=== PATIENT | female | born 1945 | race Two or more races ===

== ENCOUNTER 2017-05-13 23:58 | Emergency (ER) | payer MEDICARE, MEDICAID ==
[~2017-05-13] VITALS: Ht 152.4 cm; Wt 94.3 kg
[2017-05-14] MEDS ORDERED: ALBUTEROL/IPRATROPIUM 2.5MG/0.5MG, 3 ML NPPB ONE (00:30)
[2017-05-14] MEDS ORDERED: SODIUM CHLORIDE FLUSH 10ML SYR IVF ONE (00:30)
[2017-05-14] MEDS ORDERED: methylPREDNISolone SOD SUCC 125 MG/2 ML IVP ONE (00:30)
[2017-05-14 00:32] VITALS: BP 128/86
[2017-05-14 00:49] LABS: HEMOGLOBIN 14.6 g/dL (11.7-16.4); WHITE BLOOD COUNT 9.2 x10^3/uL (3.4-10)
[2017-05-14] MEDS ORDERED: methylPREDNISolone SOD SUCC 125 MG/2 ML ONE (01:26)
[2017-05-14 01:29] LABS: IS PT STATUS REG ER OR PRE ER? YES
[2017-05-14 02:04] LABS: BLOOD UREA NITROGEN 30 mg/dL (7-18)
[2017-05-14 02:07] LABS: ASPARTATE AMINO TRANSFERASE 36 U/L (15-37)
== END 2017-05-14 02:48 | disposition home or self-care (01) ==
LOC: ED 05-14 01:18
DX: J20.8 Acute bronchitis due to other specified organisms (principal); I10 Essential (primary) hypertension; E11.9 Type 2 diabetes mellitus without complications; E78.5 Hyperlipidemia, unspecified
CPT/HCPCS: 36415; 71010; 80053; 84484; 85025; 93005; 94640; 96374; 99285; J2930; J7620

== ENCOUNTER → 2017-07-14 | Outpatient (CLI) | payer MEDICARE, MEDICAID | END | disposition home or self-care (01) | LOC: CVU 08:36 | PROVIDERS: ATTEND Surgery | DX: I89.0 Lymphedema, not elsewhere classified (principal); L81.8 Other specified disorders of pigmentation; E66.9 Obesity, unspecified | CPT/HCPCS: 93970 ==

== ENCOUNTER 2017-12-18 21:09 | Emergency (ER) | payer MEDICARE, MEDICAID ==
[~2017-12-18] VITALS: Ht 152.4 cm; Wt 93.5 kg
[2017-12-18 21:14] VITALS: BP 179/96
[2017-12-18 22:46] LABS: BASOPHILS # (AUTO) 0.04 x10^3/uL (0-0.1); BASOPHILS % (AUTO) 0 % (0-1); EOSINOPHILS # (AUTO) 0.19 x10^3/uL (0-0.4); EOSINOPHILS % (AUTO) 2 % (1-7); LYMPHOCYTES # (AUTO) 2.89 x10^3/uL (1-3.4); LYMPHOCYTES % (AUTO) 27 % (22-44); MD NO; MEAN CORPUSCULAR HEMOGLOBIN 28.4 pg (27.0-34.8); MEAN CORPUSCULAR HGB CONC 32.9 g/dL (32.4-35.8); MEAN CORPUSCULAR VOLUME 86.1 fL (80-100); MEAN PLATELET VOLUME 7.2 fL (7.4-10.4); MONOCYTES # (AUTO) 0.64 x10^3/uL (0.2-0.8); MONOCYTES % (AUTO) 6 % (2-9); NEUTROPHILS # (AUTO) 7.03 x10^3/uL (1.8-6.8); NEUTROPHILS % (AUTO) 65 % (42-75); PLATELET COUNT 446 x10^3/uL (130-400); RED BLOOD COUNT 4.09 x10^6/uL (3.82-5.3); RED CELL DISTRIBUTION WIDTH 16.2 % (9.6-15.2)
[2017-12-18 22:58] LABS: ALANINE AMINOTRANSFERASE 26 U/L (12-78); ALBUMIN 2.8 g/dL (3.4-5.0); ANION GAP 9 mmol/L (5-15); CALCIUM 8.2 mg/dL (8.5-10.1); CHLORIDE 95 mmol/L (98-107); CREATININE 0.86 mg/dL (0.55-1.02)
[2017-12-18 23:00] LABS: ALKALINE PHOSPHATASE 107 U/L (45-117); BILIRUBIN,TOTAL 0.8 mg/dL (0.2-1.0); TOTAL PROTEIN 7.3 g/dL (6.4-8.2)
[2017-12-18 23:08] LABS: INTERNATIONAL NORMALIZED RATIO 1.04 (0.93-1.1); PROTHROMBIN TIME 10.7 Seconds (9.6-11.5)
[2017-12-18] MEDS ORDERED: BACITRACIN ZINC OINT 500U/GM, 0.9 GM ONE (23:56)
== END 2017-12-19 00:36 | disposition home or self-care (01) ==
LOC: ED 23:32 → EDIP 23:54 → UNDOADMIN 23:54 → ED 12-19 00:36
DX: S42.212A Unspecified displaced fracture of surgical neck of left humerus, initial encounter for closed fracture (principal); S02.2XXA Fracture of nasal bones, initial encounter for closed fracture; E78.5 Hyperlipidemia, unspecified; E66.9 Obesity, unspecified; E11.65 Type 2 diabetes mellitus with hyperglycemia; I10 Essential (primary) hypertension; Z79.4 Long term (current) use of insulin; Z79.82 Long term (current) use of aspirin; W01.0XXA Fall on same level from slipping, tripping and stumbling without subsequent striking against object, initial encounter; Y93.89 Activity, other specified; Y92.009 Unspecified place in unspecified non-institutional (private) residence as the place of occurrence of the external cause; Y99.8 Other external cause status
CPT/HCPCS: 29240; 36415; 70450; 70486; 71046; 72125; 80053; 85025; 85610; 93005; 99285

== ENCOUNTER → 2018-02-09 | Outpatient (CLI) | payer MEDICARE, MEDICAID ==
[~2018-02-09] MED LIST: EMPA25TA PO; FURO20TA3 PO; INSU100C5 SQ-INSULIN; INSU100V13 SC; LOSA100T6 PO; METF1000 PO; POTA10CA PO; ROSU20TA PO
== END | disposition home or self-care (01) ==
LOC: STAR 11:14
PROVIDERS: ATTEND Orthopaedic Surgery
DX: Z01.818 Encounter for other preprocedural examination (principal); S42.292A Other displaced fracture of upper end of left humerus, initial encounter for closed fracture; X58.XXXA Exposure to other specified factors, initial encounter; Y93.89 Activity, other specified; Y92.89 Other specified places as the place of occurrence of the external cause; Y99.8 Other external cause status
CPT/HCPCS: 93005

== ENCOUNTER 2019-03-12 10:40 | Emergency (ER) | payer MEDICARE, MEDICAID ==
[~2019-03-12] VITALS: Ht 142.2 cm; Wt 94.3 kg
[~2019-03-12 10:40] MED LIST changes: +LOSA100T14 PO; -LOSA100T6 PO; -ROSU20TA PO; +ROSU20TA2 PO
--- NOTE | 2019-03-12 11:07 | NUR ---
PT TO ED FOR LEFT LOWER BACK PAIN RAD DOWN LEFT LEG X10 DAYS. PAIN WORSE WITH MOVEMENT. PT CONNECTED TO MONITORES. HTN, ALL OTHER VSS ON RA. EDMD PRESENT FOR ASSESSMENT AND AWARE OF HTN. AWAITING ORDERS.
[2019-03-12] MEDS ORDERED: HYDROcodone/APAP 5/325 TABLET ONE (11:17)
[2019-03-12] MEDS ORDERED: HYDROcodone/APAP 5/325 TABLET PO ONE (11:30)
[2019-03-12 11:44] LABS: BASOPHILS # (AUTO) 0.01 x10^3/uL (0-0.1); BASOPHILS % (AUTO) 0 % (0-1); EOSINOPHILS # (AUTO) 0.22 x10^3/uL (0-0.4); EOSINOPHILS % (AUTO) 2 % (1-7); LYMPHOCYTES % (AUTO) 27 % (22-44); MD NO; MEAN CORPUSCULAR HGB CONC 31.3 g/dL (32.4-35.8); MEAN CORPUSCULAR VOLUME 82.9 fL (80-100); MEAN PLATELET VOLUME 7.6 fL (7.4-10.4); MONOCYTES # (AUTO) 0.55 x10^3/uL (0.2-0.8); MONOCYTES % (AUTO) 5 % (2-9); NEUTROPHILS # (AUTO) 6.91 x10^3/uL (1.8-6.8); NEUTROPHILS % (AUTO) 66 % (42-75); PLATELET COUNT 369 x10^3/uL (130-400); RED BLOOD COUNT 4.41 x10^6/uL (3.82-5.3); RED CELL DISTRIBUTION WIDTH 16.2 % (9.6-15.2)
[2019-03-12 11:56] LABS: ALANINE AMINOTRANSFERASE 34 U/L (12-78); ALBUMIN 3.1 g/dL (3.4-5.0); ANION GAP 7 mmol/L (5-15); CALCIUM 8.3 mg/dL (8.5-10.1); CHLORIDE 104 mmol/L (98-107)
[2019-03-12 11:59] LABS: MICROSCOPIC NOT IND
--- NOTE | 2019-03-12 12:00 | NUR ---
pt resting in room with family at bs. htn, all other vss on ra. us at bs at this time. awaiting results.
[2019-03-12 12:01] LABS: ALKALINE PHOSPHATASE 182 U/L (45-117); BILIRUBIN,TOTAL 0.3 mg/dL (0.2-1.0); TOTAL PROTEIN 7.3 g/dL (6.4-8.2); TROPONIN I < 0.015 ng/mL (0.000-0.045)
[2019-03-12 12:01] LABS: CULTURE INDICATED? NO
--- NOTE | 2019-03-12 12:27 | NUR ---
all results back at this time. chart up for recheck.
--- NOTE | 2019-03-12 12:52 | NUR ---
new orders for ct received at this time.
--- NOTE | 2019-03-12 13:00 | NUR ---
pt resting in room with family at bs. vss on ra. ekg being completed. awaiting ct.
--- NOTE | 2019-03-12 13:09 | NUR ---
pt to ct at this time.
--- NOTE | 2019-03-12 14:05 | NUR ---
pt resting in room with family at bs. vss on ra. awaiting ct results.
[2019-03-12 14:54] VITALS: BP 185/72
--- NOTE | 2019-03-12 14:55 | NUR ---
vss. edmd present to update on results and poc. plan to dc.
== END 2019-03-12 15:15 | disposition home or self-care (01) ==
LOC: ED 11:39
DX: S32.049A Unspecified fracture of fourth lumbar vertebra, initial encounter for closed fracture (principal); E11.65 Type 2 diabetes mellitus with hyperglycemia; E78.5 Hyperlipidemia, unspecified; M51.16 Intervertebral disc disorders with radiculopathy, lumbar region; M79.662 Pain in left lower leg; X58.XXXA Exposure to other specified factors, initial encounter; Y93.89 Activity, other specified; Y92.89 Other specified places as the place of occurrence of the external cause; Y99.8 Other external cause status
CPT/HCPCS: 36415; 71045; 72131; 80053; 81003; 83880; 84484; 85025; 93005; 99284

== ENCOUNTER 2019-03-23 12:51 | Inpatient (IN) | payer MEDICARE, MEDICAID ==
[~2019-03-23] VITALS: Ht 144.8 cm; Wt 97.3 kg
--- NOTE | 2019-03-23 13:30 | NUR ---
PER ROSALINE "SHE FELL TODAY AND HER RIGHT ANKLE IS REALLY SWOLLEN. SHE TOOK A VICODIN AT 0900. SHE FELL ABOUT AN HOUR AGO. SHE WAS USING THE RESTROOM AND GOT CAUGHT UP ON THE CARPET. THAT CAUSED HER TO FALL ON THE BATH TUB." FAMILY BEDSIDE.
--- NOTE | 2019-03-23 13:30 | NUR ---
PT TO ROOM FROM LOBBY AT THIS TIME.
--- NOTE | 2019-03-23 13:48 | NUR ---
PT TO IMAGING.
[2019-03-23] MEDS ORDERED: HYDROcodone/APAP 10/325 MG TABLET ONE (13:51)
[2019-03-23] MEDS ORDERED: HYDROcodone/APAP 10/325 MG TABLET PO ONE (14:00)
--- NOTE | 2019-03-23 14:04 | NUR ---
PT BACK FROM IMAGING. PT RESTING ON GURNEY. MEDICATION ADMINISTERED PER EMAR. FAMILY BEDSIDE. PT PLACED ON CONT PULSE OX,NIBP.
--- NOTE | 2019-03-23 14:29 | NUR ---
PT STATES "THE MEDICATIONS HELPED A LITTLE. I'M FEELING SLEEPY." NO ACUTE DISTRESS NOTED. FAMILY BEDSIDE
--- NOTE | 2019-03-23 15:31 | NUR ---
PT RESTING ON GURNEY. NO ACUTE DISTRESS NOTED. PER GRANDDAUGHTER, "SHE ALREADY WENT TO CAT SCAN." NO OTHER NEEDS REQUESTED AT THIS TIME. FAMILY BEDSIDE.
[2019-03-23] MEDS ORDERED: ONDANSETRON ODT 8 MG ONE (16:05)
--- NOTE | 2019-03-23 16:06 | NUR ---
PT HAD EPISODE OF EMESIS. ZOFRAN ORDERED AND ADMINISTERED
[2019-03-23] MEDS ORDERED: ONDANSETRON ODT 8 MG PO ONE (16:30)
--- NOTE | 2019-03-23 18:52 | NUR ---
PT FAILED ROADTEST. PT UNABLE TO GET OFF OF GURNEY TO STAND WITH WALKER. EDMD AWARE.
--- NOTE | 2019-03-23 18:52 | NUR ---
BEDSIDE REPORT TO BETHANY KUMAR.
--- NOTE | 2019-03-23 18:53 | NUR ---
REPORT RECEIVED FROM RODRICK SIMS.
--- NOTE | 2019-03-23 18:57 | NUR ---
LATE ENTRY FOR 1800 SPLINT COMPLETED BY EDTA. NO ACUTE DISTRESS NOTED. FAMILY BEDSIDE. NO NEEDS REQUESTED AT THIS TIME.
--- NOTE | 2019-03-23 18:57 | NUR ---
LATE ENTRY FOR 1700 PT RESTING ON [facility]. FAMILY BEDSIDE. NO NEEDS REQUESTED AT THIS TIME.
--- NOTE | 2019-03-23 19:36 | NUR ---
REPORT GIVEN TO CRUZ SIMS. ALL QUESTIONS ANSWERED.
[2019-03-23 19:47] LABS: BASOPHILS # (AUTO) 0.03 x10^3/uL (0-0.1); BASOPHILS % (AUTO) 0 % (0-1); EOSINOPHILS # (AUTO) 0.07 x10^3/uL (0-0.4); EOSINOPHILS % (AUTO) 1 % (1-7); LYMPHOCYTES # (AUTO) 2.24 x10^3/uL (1-3.4); LYMPHOCYTES % (AUTO) 18 % (22-44); MD NO; MEAN CORPUSCULAR HEMOGLOBIN 26.8 pg (27.0-34.8); MEAN CORPUSCULAR HGB CONC 32.1 g/dL (32.4-35.8); MEAN CORPUSCULAR VOLUME 83.4 fL (80-100); MEAN PLATELET VOLUME 7.8 fL (7.4-10.4); MONOCYTES # (AUTO) 0.53 x10^3/uL (0.2-0.8); MONOCYTES % (AUTO) 4 % (2-9); NEUTROPHILS # (AUTO) 9.88 x10^3/uL (1.8-6.8); NEUTROPHILS % (AUTO) 78 % (42-75); PLATELET COUNT 385 x10^3/uL (130-400); RED BLOOD COUNT 4.21 x10^6/uL (3.82-5.3); RED CELL DISTRIBUTION WIDTH 16.3 % (9.6-15.2)
[2019-03-23 19:53] LABS: INTERNATIONAL NORMALIZED RATIO 1.01 (0.93-1.1); PROTHROMBIN TIME 10.6 Seconds (9.6-11.5)
[2019-03-23 19:54] LABS: ALANINE AMINOTRANSFERASE 37 U/L (12-78); ANION GAP 6 mmol/L (5-15); CALCIUM 8.4 mg/dL (8.5-10.1); CHLORIDE 102 mmol/L (98-107)
[2019-03-23 19:57] LABS: ALKALINE PHOSPHATASE 142 U/L (45-117); BILIRUBIN,TOTAL 0.5 mg/dL (0.2-1.0); CREATININE 0.63 mg/dL (0.55-1.02); TOTAL PROTEIN 7.2 g/dL (6.4-8.2)
[2019-03-23 20:45] VITALS: BP 147/87
[2019-03-23] MEDS: MORPHINE SULFATE 4 MG/ML, 1ML IVPush PRN (21:48)
[2019-03-23] MEDS ORDERED: IBUP-647 PO (22:14)
[2019-03-23] MEDS ORDERED: ACETAMINOPHEN 325 MG TABLET PO PRN (23:00)
[2019-03-23] MEDS ORDERED: BISACODYL 10 MG SUPP PR PRN (23:00)
[2019-03-23] MEDS ORDERED: ONDANSETRON 2MG/ML, 2ML IVPush PRN (23:00)
[2019-03-23] MEDS ORDERED: hydrALAzine 20 MG/ML, 1ML IVPush PRN (23:00)
[2019-03-23 23:22] LABS: HEMOGLOBIN A1C 9.4 % (4.2-6.3)
[2019-03-23] MEDS: SODIUM CHLORIDE FLUSH 10ML SYR IVF SCH (23:42)
[2019-03-23] MEDS: INSULIN LISPRO 100 UNITS/ML, PEN SQ-INSULIN SCH (23:47)
[2019-03-24 02:17] VITALS: BP 140/70
[2019-03-24 03:14] LABS: MICROSCOPIC NOT IND
[2019-03-24 03:27] LABS: CULTURE INDICATED? NO
[2019-03-24 05:34] LABS: BASOPHILS # (AUTO) 0.01 x10^3/uL (0-0.1); BASOPHILS % (AUTO) 0 % (0-1); EOSINOPHILS # (AUTO) 0.16 x10^3/uL (0-0.4); EOSINOPHILS % (AUTO) 2 % (1-7); LYMPHOCYTES # (AUTO) 2.12 x10^3/uL (1-3.4); LYMPHOCYTES % (AUTO) 20 % (22-44); MD NO; MEAN CORPUSCULAR HEMOGLOBIN 26.7 pg (27.0-34.8); MEAN CORPUSCULAR HGB CONC 31.7 g/dL (32.4-35.8); MEAN CORPUSCULAR VOLUME 84.2 fL (80-100); MEAN PLATELET VOLUME 8.2 fL (7.4-10.4); MONOCYTES # (AUTO) 0.48 x10^3/uL (0.2-0.8); MONOCYTES % (AUTO) 5 % (2-9); NEUTROPHILS # (AUTO) 7.75 x10^3/uL (1.8-6.8); NEUTROPHILS % (AUTO) 74 % (42-75); PLATELET COUNT 347 x10^3/uL (130-400); RED BLOOD COUNT 3.91 x10^6/uL (3.82-5.3); RED CELL DISTRIBUTION WIDTH 15.9 % (9.6-15.2)
[2019-03-24 05:46] LABS: CHLORIDE 101 mmol/L (98-107)
[2019-03-24 05:52] LABS: ALANINE AMINOTRANSFERASE 30 U/L (12-78); ALBUMIN 2.7 g/dL (3.4-5.0); ALKALINE PHOSPHATASE 123 U/L (45-117); ANION GAP 6 mmol/L (5-15); BILIRUBIN,TOTAL 0.4 mg/dL (0.2-1.0); CALCIUM 8.5 mg/dL (8.5-10.1); CREATININE 0.54 mg/dL (0.55-1.02); TOTAL PROTEIN 6.3 g/dL (6.4-8.2)
[2019-03-24] MEDS: INSULIN LISPRO 100 UNITS/ML, PEN SQ-INSULIN SCH ×3 (06:17→18:00)
[2019-03-24 07:10] VITALS: BP 130/77
[2019-03-24] MEDS: MORPHINE SULFATE 4 MG/ML, 1ML IVPush PRN ×3 (08:03→23:47)
[2019-03-24] MEDS: SODIUM CHLORIDE FLUSH 10ML SYR IVF SCH ×2 (08:04→21:00)
[2019-03-24] MEDS ORDERED: PROPOFOL 10 MG/ML, 20ML ONE (08:22)
[2019-03-24] MEDS ORDERED: CEFAZOLIN 1,000 MG ONE (08:22)
[2019-03-24] MEDS ORDERED: SUCCINYLCHOLINE 20 MG/ML, 10ML ONE (08:22)
[2019-03-24 08:31] LABS: HEMOGLOBIN A1C 9.7 % (4.2-6.3)
[2019-03-24] MEDS: FUROSEMIDE 40 MG TABLET PO SCH (08:55)
[2019-03-24] MEDS: DOCUSATE 100 MG CAPSULE PO SCH (08:55)
[2019-03-24] MEDS: metFORMIN 500 MG TABLET PO SCH ×2 (08:55→21:00)
[2019-03-24] MEDS: LOSARTAN 50MG TABLET PO SCH (08:55)
[2019-03-24] MEDS: POTASSIUM CHLORIDE 10% 20 MEQ/15 ML UDC PO SCH (08:56)
[2019-03-24 12:38] VITALS: BP 116/75
[2019-03-24] MEDS ORDERED: BUPIVACAINE/EPI 0.5% 1:200K ONE (16:35)
[2019-03-24] MEDS ORDERED: FENTANYL PF 100 MCG/2ML ONE ×2 (17:42→18:36)
[2019-03-24] MEDS ORDERED: MIDAZOLAM 1 MG/ML, 2ML ONE (17:42)
[2019-03-24] MEDS ORDERED: HYDROmorphone 2 MG/ML, 1ML ONE (18:36)
[2019-03-24] MEDS ORDERED: OXYcodone 5 MG/5 ML ORAL.SOL UDC ONE (18:36)
[2019-03-24] MEDS: HYDROmorphone 2 MG/ML, 1ML IVPush PRN ×6 (18:58→19:36)
[2019-03-24] MEDS ORDERED: OXYcodone 5 MG/5 ML ORAL.SOL UDC PO PRN (19:00)
[2019-03-24] MEDS ORDERED: FENTANYL PF 100 MCG/2ML IV PRN (19:00)
[2019-03-24] MEDS ORDERED: MEPERIDINE/PF 25MG/0.5ML IVPush PRN (19:00)
[2019-03-24] MEDS ORDERED: ONDANSETRON 2MG/ML, 2ML IV PRN (19:00)
[2019-03-24] MEDS ORDERED: hydrALAzine 20 MG/ML, 1ML IV PRN (19:00)
[2019-03-24] MEDS ORDERED: hydrALAzine 20 MG/ML, 1ML ONE (19:23)
[2019-03-24 20:10] VITALS: BP 145/84
[2019-03-24] MEDS: ATORVASTATIN 80 MG TABLET PO SCH (21:00)
[2019-03-24] MEDS ORDERED: LACTATED RINGERS 1,000 ML IV SCH (23:00)
[2019-03-25] MEDS: INSULIN LISPRO 100 UNITS/ML, PEN SQ-INSULIN SCH ×5 (00:09→21:26)
[2019-03-25 00:19] VITALS: BP 126/83
[2019-03-25] MEDS: MORPHINE SULFATE 4 MG/ML, 1ML IVPush PRN ×3 (00:30→08:35)
[2019-03-25] MEDS: CEFAZOLIN PMX 1GM/50ML 50 ML IV SCH ×3 (02:06→17:49)
[2019-03-25 04:02] VITALS: BP 122/79
[2019-03-25 05:36] LABS: BASOPHILS # (AUTO) 0.03 x10^3/uL (0-0.1); BASOPHILS % (AUTO) 0 % (0-1); EOSINOPHILS % (AUTO) 1 % (1-7); LYMPHOCYTES # (AUTO) 1.41 x10^3/uL (1-3.4); LYMPHOCYTES % (AUTO) 11 % (22-44); MD NO; MEAN CORPUSCULAR HEMOGLOBIN 26.1 pg (27.0-34.8); MEAN CORPUSCULAR HGB CONC 31.4 g/dL (32.4-35.8); MEAN PLATELET VOLUME 7.8 fL (7.4-10.4); MONOCYTES # (AUTO) 0.67 x10^3/uL (0.2-0.8); MONOCYTES % (AUTO) 5 % (2-9); NEUTROPHILS # (AUTO) 10.45 x10^3/uL (1.8-6.8); NEUTROPHILS % (AUTO) 83 % (42-75); PLATELET COUNT 328 x10^3/uL (130-400); RED BLOOD COUNT 3.93 x10^6/uL (3.82-5.3); RED CELL DISTRIBUTION WIDTH 16.1 % (9.6-15.2)
[2019-03-25 05:37] LABS: ANION GAP 6 mmol/L (5-15); CALCIUM 8.4 mg/dL (8.5-10.1); CHLORIDE 100 mmol/L (98-107)
[2019-03-25 05:38] LABS: CREATININE 0.63 mg/dL (0.55-1.02)
[2019-03-25] MEDS: SODIUM CHLORIDE FLUSH 10ML SYR IVF SCH ×2 (08:31→21:26)
[2019-03-25 08:33] VITALS: BP 128/71
[2019-03-25] MEDS: LOSARTAN 50MG TABLET PO SCH (08:35)
[2019-03-25] MEDS: FUROSEMIDE 40 MG TABLET PO SCH (08:35)
[2019-03-25] MEDS: metFORMIN 500 MG TABLET PO SCH ×2 (08:35→21:23)
[2019-03-25] MEDS: DOCUSATE 100 MG CAPSULE PO SCH (08:35)
[2019-03-25] MEDS: POTASSIUM CHLORIDE 10% 20 MEQ/15 ML UDC PO SCH (08:35)
[2019-03-25] MEDS: OXYcodone/APAP 10/325MG TABLET PO PRN ×2 (10:49→19:52)
[2019-03-25 12:36] VITALS: BP 112/80
[2019-03-25] MEDS ORDERED: ENOXAPARIN 40 MG/0.4 ML SQ SCH (15:00)
[2019-03-25 18:25] VITALS: BP 119/84
[2019-03-25] MEDS: ATORVASTATIN 80 MG TABLET PO SCH (21:23)
[2019-03-26 00:25] VITALS: BP 113/75
[2019-03-26] MEDS: OXYcodone/APAP 10/325MG TABLET PO PRN ×2 (04:02→13:24)
[2019-03-26 06:57] VITALS: BP 105/67
[2019-03-26] MEDS ORDERED: INSULIN DETEMIR 40 UNIT SC SCH (07:30)
[2019-03-26 07:50] VITALS: BP 118/77
[2019-03-26] MEDS: LOSARTAN 50MG TABLET PO SCH (07:52)
[2019-03-26] MEDS: DOCUSATE 100 MG CAPSULE PO SCH (07:52)
[2019-03-26] MEDS: FUROSEMIDE 40 MG TABLET PO SCH (07:53)
[2019-03-26] MEDS: POTASSIUM CHLORIDE 10% 20 MEQ/15 ML UDC PO SCH (07:53)
[2019-03-26] MEDS: metFORMIN 500 MG TABLET PO SCH (07:53)
[2019-03-26] MEDS: INSULIN LISPRO 100 UNITS/ML, PEN SQ-INSULIN SCH ×2 (07:54→11:37)
[2019-03-26] MEDS: SODIUM CHLORIDE FLUSH 10ML SYR IVF SCH (07:56)
[2019-03-26] MEDS: MORPHINE SULFATE 4 MG/ML, 1ML IVPush PRN (08:05)
[2019-03-26] MEDS ORDERED: OXYC-432 PO (09:18)
[2019-03-26 13:20] VITALS: BP 109/76
[2019-03-26 15:00] VITALS: BP 122/81
[2019-03-26] MEDS ORDERED: INSULIN GLARGINE, 100 UNITS/ML VIAL SQ-INSULIN SCH (21:00)
== END 2019-03-26 15:50 | DRG 492 ==
LOC: ED 15:04 → EDIP 19:01 → 4NOR 19:50
PROVIDERS: ADMIT Internal Medicine; ATTEND Internal Medicine
PROC: 2W3QX1Z Immobilization of Right Lower Leg using Splint (ICD-10-PCS; principal; 2019-03-23)
PROC: 0QSJ04Z Reposition Right Fibula with Internal Fixation Device, Open Approach (ICD-10-PCS; 2019-03-24)
PROC: 0QSG04Z Reposition Right Tibia with Internal Fixation Device, Open Approach (ICD-10-PCS; 2019-03-24)
PROC: 0SSF04Z Reposition Right Ankle Joint with Internal Fixation Device, Open Approach (ICD-10-PCS; 2019-03-24)
DX: S82.851A Displaced trimalleolar fracture of right lower leg, initial encounter for closed fracture (principal); R65.11 Systemic inflammatory response syndrome (SIRS) of non-infectious origin with acute organ dysfunction; S22.41XA Multiple fractures of ribs, right side, initial encounter for closed fracture; Z68.42 Body mass index [BMI] 45.0-49.9, adult; E11.65 Type 2 diabetes mellitus with hyperglycemia; D72.828 Other elevated white blood cell count; E78.5 Hyperlipidemia, unspecified; E66.9 Obesity, unspecified; I11.9 Hypertensive heart disease without heart failure; Z96.612 Presence of left artificial shoulder joint; M17.11 Unilateral primary osteoarthritis, right knee; M85.80 Other specified disorders of bone density and structure, unspecified site; W01.0XXA Fall on same level from slipping, tripping and stumbling without subsequent striking against object, initial encounter; Y93.89 Activity, other specified; Y92.89 Other specified places as the place of occurrence of the external cause; Z79.4 Long term (current) use of insulin; Y99.8 Other external cause status
CPT/HCPCS: 29515; 36415; 71045; 76000; 80048; 80053; 81003; 82962; 83036; 85025; 85610; 85730; 93005; 99285; C1713; G0378; J0690; J1170; J1650; J2250; J2405; J2704; J3010; Q0162; J0330; J0360; J1815; J2270; J7120

== ENCOUNTER 2020-07-23 16:09 | Inpatient (IN) | payer MEDICARE, MEDICAID ==
[~2020-07-23] VITALS: Ht 144.8 cm; Wt 92.6 kg
[~2020-07-23 16:09] MED LIST changes: +IBUP-647 PO; +OXYC1TAB18 PO
[2020-07-23] MEDS ORDERED: ACETAMINOPHEN 500 MG TABLET PO ONE (17:00)
[2020-07-23] MEDS ORDERED: ACETAMINOPHEN 500 MG TABLET ONE (17:13)
[2020-07-23 17:23] LABS: BASOPHILS % (AUTO) 0 % (0-1); EOSINOPHILS % (AUTO) 0 % (1-7); LYMPHOCYTES % (AUTO) 11 % (22-44); MEAN CORPUSCULAR HEMOGLOBIN 24.6 pg (27.0-34.8); MEAN CORPUSCULAR HGB CONC 31.6 g/dL (32.4-35.8); MEAN PLATELET VOLUME 7.5 fL (7.4-10.4); MONOCYTES % (AUTO) 3 % (2-9); NEUTROPHILS % (AUTO) 85 % (42-75); PLATELET COUNT 409 x10^3/uL (130-400); RED BLOOD COUNT 4.96 x10^6/uL (3.82-5.3); RED CELL DISTRIBUTION WIDTH 16.5 % (9.6-15.2)
[2020-07-23 17:30] LABS: MD SCAN
[2020-07-23 17:33] LABS: ALANINE AMINOTRANSFERASE 15 U/L (12-78); ALBUMIN 2.1 g/dL (3.4-5.0); ANION GAP 6 mmol/L (5-15); CALCIUM 8.1 mg/dL (8.5-10.1); CHLORIDE 98 mmol/L (98-107); CREATININE 0.65 mg/dL (0.55-1.02)
[2020-07-23 17:40] LABS: ALKALINE PHOSPHATASE 111 U/L (45-117); BILIRUBIN,TOTAL 0.3 mg/dL (0.2-1.0); TOTAL PROTEIN 7.3 g/dL (6.4-8.2)
[2020-07-23 17:53] LABS: D-DIMER (DIC) 1.34 ug/mlFEU (0.00-0.52); PROTIME 11.4 Seconds (9.6-11.5)
[2020-07-23] MEDS ORDERED: CEFTRIAXONE PMX 1GM/50ML 50 ML IV ONE (18:00)
[2020-07-23] MEDS ORDERED: DOXYCYCLINE 100 MG in DEXTROSE 5% 250 ML IV SCH ×2 (18:00→19:30)
[2020-07-23] MEDS ORDERED: DEXAMETHASONE 4 MG/ML, 1ML IVPush ONE (18:00)
[2020-07-23] MEDS ORDERED: CEFTRIAXONE PMX 1GM/50ML 50 ML ONE (18:04)
[2020-07-23] MEDS ORDERED: DEXAMETHASONE 4 MG/ML, 1ML ONE (18:04)
[2020-07-23] MEDS ORDERED: LABETALOL 5MG/ML, 20ML IVPush PRN (19:00)
[2020-07-23] MEDS ORDERED: ACETAMINOPHEN 325 MG TABLET PO PRN (19:00)
[2020-07-23] MEDS ORDERED: GUAIFENESIN/DM 200-20MG, 10ML UDC PO PRN (19:00)
[2020-07-23] MEDS ORDERED: ONDANSETRON 2MG/ML, 2ML IVPush PRN (19:00)
[2020-07-23] MEDS ORDERED: DOCUSATE 100 MG CAPSULE PO PRN (19:00)
[2020-07-23] MEDS: HEPARIN 5,000 UNITS/ML, 1ML SQ SCH (19:00)
[2020-07-23] MEDS ORDERED: DOXYCYCLINE 100 MG in DEXTROSE 5% 250 ML IV ONE (19:10)
[2020-07-23] MEDS ORDERED: HEPARIN 5,000 UNITS/ML, 1ML ONE (19:33)
--- NOTE | 2020-07-23 21:03 | NUR ---
PT PLACED ON HOSPITAL BED.
--- NOTE | 2020-07-23 21:28 | NUR ---
REPORT FROM BETHANY DOSS. PT AWAKE AND VISITING WITH FAMILY.
[2020-07-23] MEDS ORDERED: ATORVASTATIN 20 MG TABLET ONE (22:20)
[2020-07-23] MEDS: INSULIN LISPRO 100 UNITS/ML, PEN SQ-INSULIN SCH (22:30)
[2020-07-23] MEDS ORDERED: ATORVASTATIN 80 MG TABLET ONE (22:34)
[2020-07-23] MEDS: ATORVASTATIN 80 MG TABLET PO SCH (22:35)
[2020-07-24] MEDS ORDERED: DEXAMETHASONE 4 MG/ML, 1ML ONE ×5 (00:04→23:20)
[2020-07-24] MEDS: DEXAMETHASONE 4 MG/ML, 1ML IVPush SCH ×4 (00:07→18:00)
--- NOTE | 2020-07-24 00:57 | NUR ---
Report received from BETHANY Salinas. This RN to assume care.
[2020-07-24] MEDS: HEPARIN 5,000 UNITS/ML, 1ML SQ SCH (03:00)
[2020-07-24] MEDS ORDERED: HEPARIN 5,000 UNITS/ML, 1ML ONE (03:24)
--- NOTE | 2020-07-24 04:45 | NUR ---
[employer] used. Patient assisted to bedside commode. Patient desat to 84% on exertion. After rest, patient SPO2 increased to 90%.
--- NOTE | 2020-07-24 05:09 | NUR ---
Patient's O2 level maintaining at 87-91% on 8lpm oxymask. Called Dr. Gomez MD hospitalist. Advised to switch patient to NRB at 8lpm and monitor. If patient continues to desat, will call resp to evaluate.
[2020-07-24] MEDS: DOXYCYCLINE 100 MG in DEXTROSE 5% 250 ML IV SCH ×2 (06:00→18:00)
--- NOTE | 2020-07-24 06:13 | NUR ---
Patient resting with no complaints. Patient maintaining sats at 91% on oxymask. Monitoring for changes.
[2020-07-24 06:29] LABS: BASOPHILS % (AUTO) 0 % (0-1); EOSINOPHILS % (AUTO) 0 % (1-7); LYMPHOCYTES % (AUTO) 11 % (22-44); MEAN CORPUSCULAR HEMOGLOBIN 24.5 pg (27.0-34.8); MEAN CORPUSCULAR HGB CONC 31.2 g/dL (32.4-35.8); MEAN PLATELET VOLUME 7.7 fL (7.4-10.4); MONOCYTES % (AUTO) 2 % (2-9); NEUTROPHILS % (AUTO) 87 % (42-75); PLATELET COUNT 424 x10^3/uL (130-400); RED BLOOD COUNT 4.88 x10^6/uL (3.82-5.3); RED CELL DISTRIBUTION WIDTH 16.2 % (9.6-15.2)
--- NOTE | 2020-07-24 06:37 | NUR ---
Meal tray ordered.
[2020-07-24 06:41] LABS: CALCIUM 8.7 mg/dL (8.5-10.1); CHLORIDE 101 mmol/L (98-107)
[2020-07-24 06:44] LABS: ANION GAP 6 mmol/L (5-15)
[2020-07-24 06:47] LABS: MD NO
--- NOTE | 2020-07-24 06:50 | NUR ---
REPORT RECEIVED FROM BETHANY BRAR
--- NOTE | 2020-07-24 06:55 | NUR ---
Note alex in EDM - 07/24/20 at 0721 by [facility] RESPIRATORY BEDSIDE EVALUATING. PT ON 15 LPM, O2 SATS AT 92, RATE AT 30. DECISION WAS MADE BY RESPIRATORY NOT TO PLACE ON OPTIFLOW AND INSTEAD CONTINUE TO MONITOR PT AT CURRENT OXYGEN SETTINGS. WILL REEVALUATE SHORTLY.
--- NOTE | 2020-07-24 07:21 | NUR ---
RESPIRATORY BEDSIDE EVALUATING. PT ON 15 LPM, O2 SATS AT 92, RATE AT 30. DECISION WAS MADE BY RESPIRATORY NOT TO PLACE ON OPTIFLOW AND INSTEAD CONTINUE TO MONITOR PT AT CURRENT OXYGEN SETTINGS. WILL REEVALUATE SHORTLY.
--- NOTE | 2020-07-24 07:35 | NUR ---
cardiac rhythm strip printed and placed on chart
--- NOTE | 2020-07-24 08:27 | NUR ---
PLACED ON OXY MASK AND PT OXYGEN SATURATION NOTED TO BE 86%. PT SPEAKING FULL SENTENCES, NO DISTRESS. NONREBREATHER PLACED BACK ON PT. WILL CONTINUE TO MONITOR.
[2020-07-24] MEDS ORDERED: GUAIFENESIN ER 600 MG TABLET ONE (08:54)
--- NOTE | 2020-07-24 09:08 | NUR ---
PT RESTING IN BED WITH EYES OPEN. VS OBTAINED. BG OBTAINED: 250.
[2020-07-24] MEDS: LOSARTAN 100 MG TAB PO SCH (09:11)
[2020-07-24] MEDS: POTASSIUM CHLORIDE 10 MEQ TABLET.ER PO SCH ×2 (09:12→09:48)
[2020-07-24] MEDS: INSULIN LISPRO 100 UNITS/ML, PEN SQ-INSULIN SCH ×5 (09:17→22:58)
[2020-07-24] MEDS ORDERED: FUROSEMIDE 20 MG TABLET ONE (09:20)
[2020-07-24] MEDS: FUROSEMIDE 20 MG TABLET PO SCH (09:22)
--- NOTE | 2020-07-24 09:33 | NUR ---
PROVIDED BREAKFAST TRAY. PT ON NASAL CANNULA WITH OXYEN SATURATION 88 TO 85 PERCENT. ENCOURAGED PT TO INHALE DEEP THROUGH NOSE. CLOSELY MONITORING PT AND TO PLACE BACK ON NONREBREATHER AFTER BREAKFAST COMPLETED. PT ASKING QUESTIONS ABOUT MEDS, SPEAKING IN FULL SENTENCES.
--- NOTE | 2020-07-24 09:37 | NUR ---
PER PHARMACIST, OK TO CUT POTASSIUM ER TAB FOR PT.
--- NOTE | 2020-07-24 09:39 | NUR ---
ORAL HYGIENE KIT PROVIDED TO PATIENT
[2020-07-24] MEDS: INSULIN GLARGINE 100 UNITS/ML, PEN SQ-INSULIN SCH (09:48)
--- NOTE | 2020-07-24 09:49 | NUR ---
AFTER PT DONE EATING BRUSHED HER TEETH AND APPLIED LIP BALM. NONREBREATHER THEN BACK IN PLACE WITH OXYGE SATURATION 92 PERCENT. PT NOTED TO HAVE OCCASIONAL COUGH.
--- NOTE | 2020-07-24 10:57 | NUR ---
PT UP TO COMMODE. PT SHORT OF BREATH WITH EXERTION AND TACHYPNEA NOTED. PT BACK TO BED. WORK OF BREATHING IMPROVED AFTER RESTING IN HOSPITAL BED.
--- NOTE | 2020-07-24 10:59 | NUR ---
PT PROVIDED TEACHING ON USE OF INCENTIVE SPIROMETER WITH ABILITY TO DEMONSTRATE BACK. PT ENCOURAGED TO USE HOURLY.
[2020-07-24] MEDS ORDERED: ENOXAPARIN 100 MG/ML ONE ×2 (11:10→20:25)
[2020-07-24] MEDS: ENOXAPARIN 100 MG/ML SQ SCH ×2 (11:17→21:20)
--- NOTE | 2020-07-24 11:36 | NUR ---
HOSPITALIST AT BEDSIDE. DISCUSSING WOB AND REQUIREMENT FOR HIGH FLOW OXYGEN. ABG ORDERED AND CHECKED AVAILABILITY OF REMDISIVIR WITH PHARMACY FOR HOSPITALIST
[2020-07-24] MEDS ORDERED: INSU100V35 SC (12:05)
[2020-07-24] MEDS ORDERED: EMPAGLIFLOZIN 10 MG (12:05)
--- NOTE | 2020-07-24 12:18 | NUR ---
PT SITTING IN, USING THE INCENTIVE SPIOMETER
--- NOTE | 2020-07-24 12:42 | NUR ---
cardiac rhythm strip printed and placed on chart
--- NOTE | 2020-07-24 12:52 | NUR ---
PT LUNCH DELIVERED. PT NEEDS MET AT THIS TIME.
--- NOTE | 2020-07-24 13:30 | NUR ---
Report given to BETHANY Call
--- NOTE | 2020-07-24 13:32 | NUR ---
REPORT REC'D FROM BETHANY OWEN
--- NOTE | 2020-07-24 13:42 | NUR ---
RESPIRATORY CONTACTED ABOUT PATIENT'S CONTINUED WORK OF BREATHING. PT ON NRB 15 LPM, SPO2 88-92%, AND RATES OF 28-32. GOMEZ ADVISED SHE WOULD COME ASSESS THE PT.
[2020-07-24] MEDS ORDERED: REMDESIVIR 200 MG in SODIUM CHLORIDE 0.9% 250 ML IVPB ONE (14:00)
--- NOTE | 2020-07-24 16:00 | NUR ---
RAPID COVID AND FLU COLLECTED AND TAKEN TO LAB.
[2020-07-24 16:24] LABS: RAPID INFLUENZA A Negative (Negative); RAPID INFLUENZA B Negative (Negative)
--- NOTE | 2020-07-24 17:49 | NUR ---
CARDIAC RHYTHM STRIP PRINTED AND PLACED ON CHART
--- NOTE | 2020-07-24 18:05 | NUR ---
IV INFILTRATED, TASK RN ATTEMPT TO START NEW IV. 2 ATTEMPTS UNSUCCESSFUL.
[2020-07-24] MEDS ORDERED: CEFTRIAXONE PMX 1GM/50ML 50 ML ONE (19:23)
[2020-07-24] MEDS: CEFTRIAXONE PMX 1GM/50ML 50 ML IV SCH (19:32)
[2020-07-24 19:36] VITALS: BP_SYST 127; BP_SYST 178; BP_DIAS 70; BP_DIAS 96
[2020-07-24] MEDS ORDERED: ATORVASTATIN 80 MG TABLET ONE (21:15)
[2020-07-24] MEDS: ATORVASTATIN 80 MG TABLET PO SCH (21:20)
[2020-07-25 00:13] VITALS: BP 165/81
[2020-07-25] MEDS: DEXAMETHASONE 4 MG/ML, 1ML IVPush SCH ×4 (00:18→17:33)
[2020-07-25 04:35] VITALS: BP 142/77
[2020-07-25 04:52] LABS: BASOPHILS % (AUTO) 0 % (0-1); EOSINOPHILS % (AUTO) 0 % (1-7); LYMPHOCYTES % (AUTO) 11 % (22-44); MEAN CORPUSCULAR HEMOGLOBIN 24.5 pg (27.0-34.8); MEAN CORPUSCULAR HGB CONC 31.2 g/dL (32.4-35.8); MEAN PLATELET VOLUME 7.5 fL (7.4-10.4); MONOCYTES % (AUTO) 6 % (2-9); NEUTROPHILS % (AUTO) 83 % (42-75); PLATELET COUNT 473 x10^3/uL (130-400); RED BLOOD COUNT 4.54 x10^6/uL (3.82-5.3); RED CELL DISTRIBUTION WIDTH 16.2 % (9.6-15.2)
[2020-07-25 04:58] LABS: INTERNATIONAL NORMALIZED RATIO 1.11 (0.93-1.1); PROTHROMBIN TIME 11.8 Seconds (9.6-11.5)
[2020-07-25 05:00] LABS: MD NO
[2020-07-25 05:02] LABS: CALCIUM 8.6 mg/dL (8.5-10.1); CHLORIDE 102 mmol/L (98-107)
[2020-07-25 05:08] LABS: ALANINE AMINOTRANSFERASE 14 U/L (12-78); ALKALINE PHOSPHATASE 103 U/L (45-117); ANION GAP 7 mmol/L (5-15); BILIRUBIN,TOTAL 0.4 mg/dL (0.2-1.0); CREATININE 0.55 mg/dL (0.55-1.02); TOTAL PROTEIN 6.8 g/dL (6.4-8.2)
[2020-07-25] MEDS ORDERED: DEXAMETHASONE 4 MG/ML, 1ML ONE (05:32)
[2020-07-25] MEDS: DOXYCYCLINE 100 MG in DEXTROSE 5% 250 ML IV SCH ×2 (05:37→17:59)
[2020-07-25 07:36] VITALS: BP 110/86
[2020-07-25] MEDS: INSULIN GLARGINE 100 UNITS/ML, PEN SQ-INSULIN SCH (08:40)
[2020-07-25] MEDS: FUROSEMIDE 20 MG TABLET PO SCH (08:42)
[2020-07-25] MEDS: ENOXAPARIN 100 MG/ML SQ SCH ×2 (08:42→20:34)
[2020-07-25] MEDS: POTASSIUM CHLORIDE 10 MEQ TABLET.ER PO SCH (08:42)
[2020-07-25] MEDS: LOSARTAN 100 MG TAB PO SCH (08:43)
[2020-07-25] MEDS ORDERED: CHOLECALCIFEROL 5,000u TAB ONE (09:51)
[2020-07-25] MEDS ORDERED: ASCORBIC ACID 500 MG TABLET ONE (09:52)
[2020-07-25] MEDS ORDERED: ZINC SULFATE 220 MG CAPSULE ONE (09:52)
[2020-07-25] MEDS ORDERED: INSULIN LISPRO 100 UNITS/ML, PEN SQ-INSULIN ONE (10:00)
[2020-07-25] MEDS: ZINC SULFATE 220 MG CAPSULE PO SCH (10:04)
[2020-07-25] MEDS: CHOLECALCIFEROL 5,000u TAB PO SCH (10:04)
[2020-07-25] MEDS: ASCORBIC ACID 500 MG TABLET PO SCH ×3 (10:04→20:34)
[2020-07-25] MEDS: INSULIN LISPRO 100 UNITS/ML, PEN SQ-INSULIN SCH ×3 (12:14→21:23)
[2020-07-25 15:04] VITALS: BP 143/85
[2020-07-25] MEDS: REMDESIVIR 100 MG in SODIUM CHLORIDE 0.9% 250 ML IVPB SCH (15:17)
[2020-07-25] MEDS: CEFTRIAXONE PMX 1GM/50ML 50 ML IV SCH (20:25)
[2020-07-25] MEDS: ATORVASTATIN 80 MG TABLET PO SCH (20:34)
[2020-07-25 20:46] VITALS: BP 160/96
[2020-07-26] MEDS: DEXAMETHASONE 4 MG/ML, 1ML IVPush SCH ×4 (00:05→20:14)
[2020-07-26 00:30] VITALS: BP 151/92
[2020-07-26 05:24] LABS: ALANINE AMINOTRANSFERASE 22 U/L (12-78); ALBUMIN 1.9 g/dL (3.4-5.0); ANION GAP 7 mmol/L (5-15); CALCIUM 8.4 mg/dL (8.5-10.1); CHLORIDE 103 mmol/L (98-107); CREATININE 0.43 mg/dL (0.55-1.02)
[2020-07-26 05:27] LABS: ALKALINE PHOSPHATASE 98 U/L (45-117); BILIRUBIN,TOTAL 0.3 mg/dL (0.2-1.0); TOTAL PROTEIN 6.3 g/dL (6.4-8.2)
[2020-07-26] MEDS: DOXYCYCLINE 100 MG in DEXTROSE 5% 250 ML IV SCH (06:07)
[2020-07-26] MEDS: INSULIN LISPRO 100 UNITS/ML, PEN SQ-INSULIN SCH ×4 (07:55→21:09)
[2020-07-26] MEDS: INSULIN GLARGINE 100 UNITS/ML, PEN SQ-INSULIN SCH (07:55)
[2020-07-26] MEDS: ENOXAPARIN 100 MG/ML SQ SCH ×2 (07:55→20:14)
[2020-07-26] MEDS: FUROSEMIDE 20 MG TABLET PO SCH (07:56)
[2020-07-26] MEDS: CHOLECALCIFEROL 5,000u TAB PO SCH (07:56)
[2020-07-26] MEDS: ASCORBIC ACID 500 MG TABLET PO SCH ×3 (07:56→20:14)
[2020-07-26] MEDS: POTASSIUM CHLORIDE 10 MEQ TABLET.ER PO SCH (07:57)
[2020-07-26] MEDS: ZINC SULFATE 220 MG CAPSULE PO SCH (07:57)
[2020-07-26] MEDS: LOSARTAN 100 MG TAB PO SCH (07:57)
[2020-07-26 08:01] VITALS: BP 143/86
[2020-07-26 14:15] VITALS: BP 137/83
[2020-07-26] MEDS: REMDESIVIR 100 MG in SODIUM CHLORIDE 0.9% 250 ML IVPB SCH (14:15)
[2020-07-26 20:10] VITALS: BP 150/86
[2020-07-26] MEDS: ATORVASTATIN 80 MG TABLET PO SCH (20:13)
[2020-07-26] MEDS: CEFTRIAXONE PMX 1GM/50ML 50 ML IV SCH (20:14)
[2020-07-26] MEDS: DOXYCYCLINE 100MG TABLET PO SCH (21:09)
[2020-07-27 02:29] VITALS: BP 156/92
[2020-07-27 05:29] LABS: ALANINE AMINOTRANSFERASE 27 U/L (12-78); ANION GAP 3 mmol/L (5-15); CALCIUM 8.4 mg/dL (8.5-10.1); CHLORIDE 104 mmol/L (98-107)
[2020-07-27 05:31] LABS: ALKALINE PHOSPHATASE 109 U/L (45-117); BILIRUBIN,TOTAL 0.7 mg/dL (0.2-1.0); TOTAL PROTEIN 6.3 g/dL (6.4-8.2)
[2020-07-27] MEDS: INSULIN LISPRO 100 UNITS/ML, PEN SQ-INSULIN SCH ×4 (08:20→21:01)
[2020-07-27] MEDS: ZINC SULFATE 220 MG CAPSULE PO SCH (08:21)
[2020-07-27] MEDS: INSULIN GLARGINE 100 UNITS/ML, PEN SQ-INSULIN SCH (08:21)
[2020-07-27] MEDS: CHOLECALCIFEROL 5,000u TAB PO SCH (08:22)
[2020-07-27] MEDS: ENOXAPARIN 100 MG/ML SQ SCH ×2 (08:22→20:45)
[2020-07-27] MEDS: FUROSEMIDE 20 MG TABLET PO SCH (08:22)
[2020-07-27] MEDS: POTASSIUM CHLORIDE 10 MEQ TABLET.ER PO SCH (08:22)
[2020-07-27] MEDS: DOXYCYCLINE 100MG TABLET PO SCH ×2 (08:22→20:44)
[2020-07-27] MEDS: ASCORBIC ACID 500 MG TABLET PO SCH ×3 (08:22→20:45)
[2020-07-27] MEDS: DEXAMETHASONE 4 MG/ML, 1ML IVPush SCH ×2 (08:22→20:45)
[2020-07-27] MEDS: LOSARTAN 100 MG TAB PO SCH (08:23)
[2020-07-27 08:33] VITALS: BP 177/110
[2020-07-27] MEDS: REMDESIVIR 100 MG in SODIUM CHLORIDE 0.9% 250 ML IVPB SCH (14:01)
[2020-07-27 14:46] VITALS: BP 134/76
[2020-07-27 19:00] VITALS: BP 153/75
[2020-07-27] MEDS: ATORVASTATIN 80 MG TABLET PO SCH (20:44)
[2020-07-27] MEDS: CEFTRIAXONE PMX 1GM/50ML 50 ML IV SCH (20:44)
[2020-07-28 00:27] VITALS: BP 157/70
[2020-07-28 04:50] LABS: BASOPHILS % (AUTO) 1 % (0-1); EOSINOPHILS % (AUTO) 0 % (1-7); LYMPHOCYTES % (AUTO) 11 % (22-44); MEAN CORPUSCULAR HEMOGLOBIN 24.9 pg (27.0-34.8); MEAN CORPUSCULAR HGB CONC 31.7 g/dL (32.4-35.8); MEAN PLATELET VOLUME 7.7 fL (7.4-10.4); MONOCYTES % (AUTO) 6 % (2-9); NEUTROPHILS % (AUTO) 83 % (42-75); PLATELET COUNT 436 x10^3/uL (130-400); RED BLOOD COUNT 4.47 x10^6/uL (3.82-5.3); RED CELL DISTRIBUTION WIDTH 16.3 % (9.6-15.2)
[2020-07-28 04:52] LABS: ALANINE AMINOTRANSFERASE 30 U/L (12-78); ANION GAP 6 mmol/L (5-15); CALCIUM 8.1 mg/dL (8.5-10.1); CHLORIDE 106 mmol/L (98-107)
[2020-07-28 04:59] LABS: ALKALINE PHOSPHATASE 118 U/L (45-117); BILIRUBIN,TOTAL 0.2 mg/dL (0.2-1.0); MD NO; TOTAL PROTEIN 6.1 g/dL (6.4-8.2)
[2020-07-28 08:53] VITALS: BP 181/78
[2020-07-28] MEDS: INSULIN GLARGINE 100 UNITS/ML, PEN SQ-INSULIN SCH (08:57)
[2020-07-28] MEDS: INSULIN LISPRO 100 UNITS/ML, PEN SQ-INSULIN SCH ×4 (08:58→20:50)
[2020-07-28] MEDS: DEXAMETHASONE 4 MG/ML, 1ML IVPush SCH ×2 (08:58→20:46)
[2020-07-28] MEDS: CHOLECALCIFEROL 5,000u TAB PO SCH (09:01)
[2020-07-28] MEDS: POTASSIUM CHLORIDE 10 MEQ TABLET.ER PO SCH (09:01)
[2020-07-28] MEDS: DOXYCYCLINE 100MG TABLET PO SCH ×2 (09:01→20:47)
[2020-07-28] MEDS: ASCORBIC ACID 500 MG TABLET PO SCH ×3 (09:01→20:46)
[2020-07-28] MEDS: FUROSEMIDE 20 MG TABLET PO SCH (09:01)
[2020-07-28] MEDS: ZINC SULFATE 220 MG CAPSULE PO SCH (09:02)
[2020-07-28] MEDS: LOSARTAN 100 MG TAB PO SCH (09:06)
[2020-07-28] MEDS: ENOXAPARIN 100 MG/ML SQ SCH ×2 (10:00→20:46)
[2020-07-28] MEDS: CARVEDILOL 6.25 MG TABLET PO SCH ×2 (11:57→20:47)
[2020-07-28 12:00] VITALS: BP 168/94
[2020-07-28] MEDS: REMDESIVIR 100 MG in SODIUM CHLORIDE 0.9% 250 ML IVPB SCH (14:46)
[2020-07-28 14:52] VITALS: BP 130/81
[2020-07-28] MEDS ORDERED: FUROSEMIDE 20 MG/2 ML IV SCH (17:00)
[2020-07-28 18:20] VITALS: BP 124/83
[2020-07-28 20:10] VITALS: BP 124/76
[2020-07-28] MEDS: CEFTRIAXONE PMX 1GM/50ML 50 ML IV SCH (20:45)
[2020-07-28] MEDS: ATORVASTATIN 80 MG TABLET PO SCH (20:47)
[2020-07-29 00:35] VITALS: BP 139/83
[2020-07-29 05:46] VITALS: BP 151/87
[2020-07-29] MEDS: CARVEDILOL 6.25 MG TABLET PO SCH ×2 (05:48→17:00)
[2020-07-29] MEDS ORDERED: FUROSEMIDE 20 MG/2 ML IV SCH (07:30)
[2020-07-29 08:00] VITALS: BP 147/88
[2020-07-29] MEDS: LOSARTAN 100 MG TAB PO SCH (09:00)
[2020-07-29] MEDS: ZINC SULFATE 220 MG CAPSULE PO SCH (09:17)
[2020-07-29] MEDS: POTASSIUM CHLORIDE 10 MEQ TABLET.ER PO SCH (09:17)
[2020-07-29] MEDS: CHOLECALCIFEROL 5,000u TAB PO SCH (09:17)
[2020-07-29] MEDS: ASCORBIC ACID 500 MG TABLET PO SCH ×3 (09:17→20:39)
[2020-07-29] MEDS: INSULIN LISPRO 100 UNITS/ML, PEN SQ-INSULIN SCH ×4 (09:18→20:33)
[2020-07-29] MEDS: INSULIN GLARGINE 100 UNITS/ML, PEN SQ-INSULIN SCH (09:19)
[2020-07-29] MEDS: ENOXAPARIN 40 MG/0.4 ML SQ SCH (09:19)
[2020-07-29 14:00] VITALS: BP 130/83
[2020-07-29] MEDS: ATORVASTATIN 80 MG TABLET PO SCH (20:39)
[2020-07-29 21:09] VITALS: BP 119/77
[2020-07-30 00:18] VITALS: BP 116/77
[2020-07-30] MEDS: CARVEDILOL 6.25 MG TABLET PO SCH (04:47)
[2020-07-30 05:31] LABS: ANION GAP 4 mmol/L (5-15); CALCIUM 8.2 mg/dL (8.5-10.1); CHLORIDE 102 mmol/L (98-107); CREATININE 0.38 mg/dL (0.55-1.02)
[2020-07-30] MEDS ORDERED: DEXA4TAB66 PO (07:00)
[2020-07-30] MEDS ORDERED: POTASSIUM CHLORIDE 20 MEQ TAB.ER.PRT PO ONE (07:30)
[2020-07-30] MEDS ORDERED: DEXAMETHASONE 4 MG TABLET PO SCH (07:30)
[2020-07-30 08:13] VITALS: BP 131/86
[2020-07-30] MEDS: INSULIN LISPRO 100 UNITS/ML, PEN SQ-INSULIN SCH ×2 (08:38→10:54)
[2020-07-30] MEDS ORDERED: FUROSEMIDE 20 MG TABLET ONE (08:44)
[2020-07-30] MEDS ORDERED: FUROSEMIDE 40 MG TABLET PO SCH (09:00)
[2020-07-30] MEDS: CHOLECALCIFEROL 5,000u TAB PO SCH (09:01)
[2020-07-30] MEDS: ENOXAPARIN 40 MG/0.4 ML SQ SCH (09:01)
[2020-07-30] MEDS: LOSARTAN 100 MG TAB PO SCH (09:01)
[2020-07-30] MEDS: ZINC SULFATE 220 MG CAPSULE PO SCH (09:02)
[2020-07-30] MEDS: ASCORBIC ACID 500 MG TABLET PO SCH (09:02)
[2020-07-30] MEDS: POTASSIUM CHLORIDE 10 MEQ TABLET.ER PO SCH (09:03)
[2020-07-30] MEDS: INSULIN GLARGINE 100 UNITS/ML, PEN SQ-INSULIN SCH (09:03)
[2020-07-30 15:18] VITALS: BP 127/81
[2020-07-30] MEDS ORDERED: ENOXAPARIN 30 MG/0.3 ML SQ SCH (21:00)
== END 2020-07-30 16:59 | disposition home or self-care (01) | DRG 871 ==
LOC: ED 16:57 → EDIP 18:58 → ICU 07-25 07:26
PROVIDERS: ADMIT Family Medicine; ATTEND Hospitalist
DX: A41.89 Other specified sepsis (principal); J96.21 Acute and chronic respiratory failure with hypoxia; J12.89 Other viral pneumonia; J96.01 Acute respiratory failure with hypoxia; U07.1 COVID-19; E11.9 Type 2 diabetes mellitus without complications; E66.9 Obesity, unspecified; E78.5 Hyperlipidemia, unspecified; I10 Essential (primary) hypertension; M54.30 Sciatica, unspecified side; Z79.899 Other long term (current) drug therapy; Z79.84 Long term (current) use of oral hypoglycemic drugs; Z79.891 Long term (current) use of opiate analgesic; Z79.01 Long term (current) use of anticoagulants; Z82.49 Family history of ischemic heart disease and other diseases of the circulatory system; Z83.3 Family history of diabetes mellitus
CPT/HCPCS: 36415; 36600; 71045; 80048; 80053; 82728; 82803; 82947; 82962; 83605; 83615; 84145; 85025; 85049; 85379; 85384; 85610; 85730; 86140; 87040; 87081; 87400; 87635; 93005; 93306; 96374; 96375; 99291; G0378; J0696; J1100; J1644; J1650; J7060; J1815; J1940; J7050